=== PATIENT | female | born 1940 | race Caucasian/White ===

== ENCOUNTER 2022-07-26 08:55 | Outpatient (CLI) | payer MEDICARE, OTHER ==
[2022-07-26 11:59] LABS: BASOPHILS % (AUTO) 0.3 %; EOSINOPHILS # (AUTO) 0.2 10^3/uL (0.0-0.7); EOSINOPHILS % (AUTO) 2.6 %; HCT - HEMATOCRIT 46.3 % (37.0-47.0); LYMPHOCYTES # (AUTO) 2.9 10^3/uL (1.5-3.5); LYMPHOCYTES % (AUTO) 49.2 %; MEAN CORPUSCULAR HEMOGLOBIN 30.5 pg (27.0-31.0); MEAN CORPUSCULAR HGB CONC 32.4 g/dL (32.0-36.0); MEAN CORPUSCULAR VOLUME 94.1 fL (81.0-99.0); MEAN PLATELET VOLUME 10.7 fL (7.9-10.8); MONOCYTES # (AUTO) 0.4 10^3/uL (0.0-1.0); MONOCYTES % (AUTO) 7.5 %; NEUTROPHILS # (AUTO) 2.3 10^3/uL (1.5-6.6); NEUTROPHILS % (AUTO) 40.2 %; PLT - PLATELET COUNT 248 10^3/uL (130-450); RED BLOOD COUNT 4.92 10^6/uL (4.20-5.40); RED CELL DISTRIBUTION WIDTH 14.9 % (12.0-15.0); WHITE BLOOD COUNT 5.8 x10^3/uL (4.8-10.8)
[2022-07-26 12:18] LABS: ALBUMIN 3.9 g/dL (3.2-5.5); ALBUMIN/GLOBULIN RATIO 0.9 (1.0-2.2); ALKALINE PHOSPHATASE 59 IU/L (42-121); ALT ALANINE AMINOTRANSFERASE 18 IU/L (10-60); AST ASPARTATE AMINOTRANSFERASE 22 IU/L (10-42); BILIRUBIN,TOTAL 0.8 mg/dL (0.2-1.0); BUN - BLOOD UREA NITROGEN 18 mg/dL (6-20); CALCIUM 9.3 mg/dL (8.5-10.3); CARBON DIOXIDE - CO2 29 mmol/L (21-32); CHLORIDE 105 mmol/L (101-111); CHOL/HDL RATIO 4.4 (<4.4); CHOLESTEROL 257 mg/dL; CREATININE 0.9 mg/dL (0.4-1.0); GFR - MDRD 60 (>89); GLUCOSE 102 mg/dL (70-100); HDL CHOLESTEROL 58 mg/dL; LDL CHOLESTEROL,CALCULATED 178 mg/dL; LDL/HDL RATIO 3.1 (<4.4); POTASSIUM 3.9 mmol/L (3.5-5.0); SODIUM 140 mmol/L (135-145); TOTAL PROTEIN 8.4 g/dL (6.7-8.2); TRIGLYCERIDES 103 mg/dL; VLDL CHOLESTEROL 21 mg/dL
[2022-07-26 12:28] LABS: THYROID STIMULATING HORMONE 36.34 uIU/mL (0.34-5.60)
[2022-07-26 12:59] LABS: FREE T4 (FREE THYROXINE) 0.44 ng/dL (0.58-1.64)
== END 2022-07-26 08:56 | disposition home or self-care (01) ==
LOC: LAB.N 08:55
PROVIDERS: ATTEND Family Medicine
DX: E03.9 Hypothyroidism, unspecified (principal); G47.00 Insomnia, unspecified; R03.0 Elevated blood-pressure reading, without diagnosis of hypertension
CPT/HCPCS: 36415; 80053; 80061; 83721; 84439; 84443; 85025

== ENCOUNTER 2022-11-25 10:32 | Outpatient (CLI) | payer MEDICARE ==
[2022-11-25 13:37] LABS: THYROID STIMULATING HORMONE 48.57 uIU/mL (0.34-5.60)
== END 2022-11-25 10:33 | disposition home or self-care (01) ==
LOC: LAB.N 10:32
PROVIDERS: ATTEND Family Medicine
DX: E03.9 Hypothyroidism, unspecified (principal)
CPT/HCPCS: 36415; 80053; 80061; 83721; 84439; 84443; 84481; 85025

== ENCOUNTER 2022-12-05 08:37 | Outpatient (CLI) | payer MEDICARE ==
[2022-12-05 13:18] LABS: BILIRUBIN,URINE NEGATIVE (NEGATIVE); GLUCOSE, URINE (UA) NEGATIVE (NEGATIVE); KETONES,URINE (UA) NEGATIVE (NEGATIVE); LEUKOCYTE ESTERASE, URINE MODERATE (NEGATIVE); NITRITE,URINE NEGATIVE (NEGATIVE); OCCULT BLOOD,URINE TRACE-INTA (NEGATIVE); PH,URINE 7.5 PH (5.0-7.5); PROTEIN,URINE TRACE mg/dL (NEGATIVE); UROBILINOGEN,URINE 0.2 (NORMAL) E.U./dL (NORMAL)
[2022-12-05 13:21] LABS: CLARITY,URINE CLEAR (CLEAR)
[2022-12-05 13:30] LABS: RBC,URINE 0-5 /HPF (0-5); SQUAMOUS EPITHELIAL CELL,UR MOD Squamous (<= Few)
[2022-12-05 13:31] LABS: AMORPHOUS SEDIMENT,UR Moderate /LPF; BACTERIA,URINE Moderate /HPF (None Seen)
== END 2022-12-05 08:38 | disposition home or self-care (01) ==
LOC: LAB.N 08:37
PROVIDERS: ATTEND Family Medicine
DX: Z87.448 Personal history of other diseases of urinary system (principal)
CPT/HCPCS: 81001

== ENCOUNTER 2022-12-07 08:00 | Outpatient (CLI) | payer MEDICARE | END 2022-12-07 23:59 | disposition home or self-care (01) | LOC: LAB.WCP 08:00 | PROVIDERS: ATTEND Family Medicine | DX: N39.0 Urinary tract infection, site not specified (principal) | CPT/HCPCS: 87086 ==

== ENCOUNTER 2022-12-23 08:38 | Outpatient (CLI) | payer MEDICARE ==
[2022-12-23 12:34] LABS: THYROID STIMULATING HORMONE 46.05 uIU/mL (0.34-5.60)
== END 2022-12-23 08:39 | disposition home or self-care (01) ==
LOC: LAB.N 08:38
PROVIDERS: ATTEND Family Medicine
DX: E03.9 Hypothyroidism, unspecified (principal)
CPT/HCPCS: 36415; 84439; 84443; 84481

== ENCOUNTER 2023-04-24 09:52 | Outpatient (CLI) | payer MEDICARE ==
--- NOTE | 2023-04-24 22:13 | SLEEP CARE CONSULTATION ---
Information from patient questionnaire entered by Fadumo Canales. I have reviewed and concur with the information entered by Fadumo Canales. This document represents the service I personally performed and the decisions made by me, Shilo Acuña MD, [facility]. History of Present Illness Service Date and Time: 04/24/2023 0952 Reason for Visit: New patient Chief Complaint: reports: Insomnia, Other (USING O2 AT NIGHT FOR THE LAST THREE YRS) Date of Onset: 3-4YRS Usual bedtime: 830-9PM Time it takes to fall asleep: 15-30MINS Snores at night: No Observed to quit breathing while asleep: No Reasons for waking at night: reports: Bathroom Toss, Turn, or Twitch while sleeping: Yes Recalls having dreams: Yes (BUT NOT RECENTLY) Usually gets out of bed at: 830-9AM Feels refreshed in the morning: Yes Morning headache: No Sleepy or fatigued during the day: Yes Ever fallen asleep while driving: No Takes day naps: No Dreams during day naps: No Prior sleep studies: Yes Additional HPI information: I have the pleasure of seeing Ms. Doty today regarding the possibility of her having obstructive sleep apnea. As you know, she is an 82-year-old lady who complains of insomnia for 3 4 years. She had a sleep study in [place], [place] about 4 years ago and was told that her oxygen saturation was low at night. She has been using oxygen at night since. She states that she has dementia that is worsening. She blames it on not getting adequate deep sleep. She wakes up often during the night and has difficulty falling back asleep. Her son tells her that she spends too much time in bed. The patient tells me that she normally goes to bed around 8:30 - 9 pm, and it takes her approximately 15 - 30 minutes to fall asleep. She does not think she snores. She has never been observed to stop breathing in her sleep. However, she sleeps alone. In the morning she usually gets up out of the bed around 8:30 - 9 a.m. not feeling refreshed nor rested. She usually does not have a morning headache. During the day she does not feel sleepy and fatigued. Her score on [place] Sleepiness Scale is 4 out of 24. She never has fallen asleep while driving nor has had any accident due to sleepiness. She usually does not take naps during the day. - Parasomnia Symptoms Ever been unable to move upon waking from sleep: No Walks in sleep: No Talks in sleep: No Ever acted out dreams in sleep: No Ever felt weak in the knees when startled or emotional: No Bothered by creepy, crawly, restless sensations in legs: No Problems with memory or concentration: Yes Subjective Initial [place] Sleepiness Scale score: 4 (03/10/23) Past Medical History Past Medical History: reports: Arthritis, Hypothyroidism, Anxiety, GERD, Attention deficit, Other (DEMENTIA, O2 USAGE) Social History The patient's occupation is a RE. Patient is / and lives in [place]. Have you smoked in the past 12 months: No Cigarettes per day (20/pack): 10 Years of smokin Quit date: 1989 Smoking Pack Years: 2.0 Alcohol use: Yes Alcohol amount and frequency: 1 GLASS 1 X WEEK NOT IN PAST TWO YRS Caffeine use: Yes Caffeine amount and frequency: 1 CUPS COFFEE ONLY AT BREAKFAST Family History Family history of sleep disordered breathing: Yes Family Hx Sleep Apnea: Mother: Snoring, Father: Snoring Allergies and Home Medications Known drug allergies: Yes ( LISTED ) Drug allergies reviewed: Yes Home medication list reviewed: Yes Review of Systems Weight gain over past 5 years: 15 Cardiovascular: denies: high blood pressure, palpitations, chest pain, irregular heart rate or pulse, leg or foot swelling, have to sleep sitting up, other Respiratory: reports: sputum production Gastrointestinal: denies: heartburn, difficulty swallowing, nausea, vomitting, diarrhea, abdominal pain, other Urinary: reports: frequency Neurological: denies: headaches, seizure, head trauma, disorientation, speech dysfunction, gait or balance problems, fainting or unconsciousness, other Psychiatric: reports: Attention Deficit Hyperactivity, anxiety, other (DEMNTIA) Ear/Nose/Throat: reports: sinus problems, dry mouth/throat, tonsillectomy, wisdom teeth removed Endocrine: reports: thyroid disease, sluggishness Musculoskeletal: reports: neck pain Immunologic: denies: sneezing, rash, itching, allergies to food or environment, other Physical Exam Vital signs obtained and entered by: FADUMO Solis MA Blood Pressure: 146/86 (LEFT ARM) Cuff size: regular Heart Rate: 106 O2 Saturation: 95 Height: 5 ft 0.5 in Weight: 168 lb 12.8 oz Body Mass Index: 32.4 BMI Classification: Obese Neck circumference: 16.5 HEENT: No craniofacial malformation Nostrils: patent to airflow Turbinates: normal Septum: midline Mouth and throat: narrow oropharynx Soft palate: long Hard palate: normal Uvula: normal Uvula visualization: 50% Mallampati Class II Tongue: normal in size Tonsils: small Chin and jaw: normal size and position Neck: normal w/o lymphadenopathy or thyromegaly Heart: regular rate and rhythm Lungs: clear bilaterally Extremities: no edema or clubbing Neurologic: intact Impression and Plan IMPRESSION: 1. Nocturnal hypoxemia, based on her prior in-laboratory polysomnography, according to the patient. This will need to be reevaluated because she was at 6,000 ft elevation at the time and she is now at sea level. She also has gained weight which could make her have sleep-related breathing disorder. 2. Insomnia, psychophysiological and sleep state misperception. Cognitive behavior therapy (CBTi) was performed. First, I told her that her dementia is not due to lack of sleep in her case. The first sign of insufficient sleep is excessive daytime sleepiness which she does not have ([place] Sleepiness Scale score is of only 4). I then explained to her that by spending 12 hours in bed at night, she will always have to lie awake for 4 hours, assuming the normal sleep requirement of 8 hours a night. No sleep aid can help in this situation. Because of her dementia, there is most likely a component of sleep state misperception as well. Plan: 1. Schedule polysomnography and return in 1 to 2 weeks after the study to discuss results and initiate therapy if necessary. 2. Maintain a regular wake up time and spend no more than 8 hours in bed at night. Avoid naps. Counseling Topics: Weight control Follow up with Sleep Care in: 1-2 months Visit Type: In Office Time Spent with Patient (minutes): 15 Provider Statement: I spent 100% of the Face to Face Visit with the patient with greater than 50% spent counseling the patient and coordination of care.
[2023-04-24 22:16] VITALS: BP 146/86; O2SAT 95
== END 2023-04-24 09:53 | disposition home or self-care (01) ==
LOC: SC 09:52
PROVIDERS: ATTEND Internal Medicine Pulmonary Disease
DX: R09.02 Hypoxemia (principal); F51.04 Psychophysiologic insomnia; F03.90 Unspecified dementia, unspecified severity, without behavioral disturbance, psychotic disturbance, mood disturbance, and anxiety; E66.9 Obesity, unspecified; Z68.32 Body mass index [BMI] 32.0-32.9, adult; Z99.81 Dependence on supplemental oxygen
CPT/HCPCS: 99202; G0463; 99212

== ENCOUNTER 2023-05-02 08:43 | Outpatient (CLI) | payer MEDICARE ==
[2023-05-02 13:10] LABS: THYROID STIMULATING HORMONE 23.16 uIU/mL (0.34-5.60)
== END 2023-05-02 08:44 | disposition home or self-care (01) ==
LOC: LAB.N 08:43
PROVIDERS: ATTEND Internal Medicine Endocrinology, Diabetes & Metabolism
DX: E55.9 Vitamin D deficiency, unspecified (principal); E03.9 Hypothyroidism, unspecified
CPT/HCPCS: 36415; 82306; 84439; 84443; 84481

== ENCOUNTER 2023-05-03 20:46 | Outpatient (CLI) | payer MEDICARE | END 2023-05-03 20:47 | disposition home or self-care (01) | LOC: SC 20:46 | PROVIDERS: ATTEND Internal Medicine Pulmonary Disease | DX: G47.61 Periodic limb movement disorder (principal); R09.02 Hypoxemia | CPT/HCPCS: 95810 ==

== ENCOUNTER 2023-06-05 10:02 | Outpatient (CLI) | payer MEDICARE ==
--- NOTE | 2023-06-05 13:52 | SLEEP CARE CONSULTATION ---
Information from patient questionnaire entered by Fadumo Canales. I have reviewed and concur with the information entered by Fadumo Canales. This document represents the service I personally performed and the decisions made by me, Shilo Acuña MD, [facility]. History of Present Illness Service Date and Time: 06/05/2023 1002 Initial [place] Sleepiness Scale score: 4 (03/10/23) Current [place] Sleepiness Scale score: 3 (06/05/23) Additional HPI information: Ms. Lake returned for follow up of the sleep study she had on 05/03/23. The polysomnography showed that the patient had reduced sleep efficiency due to sleep onset insomnia and proj mgr awakening. The sleep architecture was relatively normal considering the first-night effect. Respiratory monitoring showed no significant sleep disordered breathing (AHI = 3.0) There was moderate hypoxia due low baseline oxygen saturation of 86% (aidee oxygen saturation of 79 %). The patient did not sleep supine during this study. Snore was light to loud in intensity. There was moderate periodic leg movement of sleep, not contributing to the sleep fragmentation. Cardiac rhythm was normal sinus rhythm without significant arrhythmia. No abnormal behavior (parasomnia) observed during the night. The patient was informed of these findings. I explained to her that her sleep study shows low oxygen saturation at night without significant sleep-disordered breathing. She is already using oxygen at home at 2 l/m that was started when she lived in [place]. She denies having restless leg syndrome. Sleep Study - Results Type of Sleep Study: Polysomnography (COMPLETED 05/03/23) Prior sleep studies: Yes Allergies and Home Medications Allergy and home medication list: Allergies trazodone Adverse Reaction (Verified 06/01/23 16:11) Review of Systems Review of systems same as previous: Yes (NO CHANGE) Physical Exam Vital signs obtained and entered by: FADUMO Solis MA Blood Pressure: 165/86 (LEFT ARM) Cuff size: regular Heart Rate: 90 O2 Saturation: 94 Height: 5 ft 0.5 in Weight: 169 lb 9.6 oz Body Mass Index: 32.5 BMI Classification: Obese Impression and Plan IMPRESSION: 1. Hypoxia, moderate. She reports having hypoxia on exertion as well. The etiology of her hypoxia has not been established. The patient only smoked cigarettes for 3 years while in college. I recommend she follow up with her primary care provider who may want to refer her to a pigment weigher. 2. Insomnia, due to excessive time spent in bed of about 12 hours a night. There is probably a component of sleep state misperception given her dementia. She was advised to not spend more than 8 hours in bed at night. If she wants to go to bed at 9 pm, then she must be out of bed no later than 5 am. PLAN: 1. Continue with home oxygen at night and on exertion 2. Follow up with her primary care provider for further evaluation of hypoxemia. 3. Maintain a regular wake up time and spend no more than 8 hours in bed at night. Avoid naps. 4. Return for a follow up on as needed basis. Follow up with Sleep Care in: as needed Follow up with: PCP Visit Type: In Office Time Spent with Patient (minutes): 15 Provider Statement: I spent 100% of the Face to Face Visit with the patient with greater than 50% spent counseling the patient and coordination of care.
[2023-06-05 13:55] VITALS: BP 165/86; O2SAT 94
== END 2023-06-05 10:03 | disposition home or self-care (01) ==
LOC: SC 10:02
PROVIDERS: ATTEND Internal Medicine Pulmonary Disease
DX: R09.02 Hypoxemia (principal); G47.00 Insomnia, unspecified
CPT/HCPCS: 99212; G0463

== ENCOUNTER 2023-08-08 08:58 | Outpatient (CLI) | payer MEDICARE ==
[2023-08-08 13:33] LABS: THYROID STIMULATING HORMONE 16.36 uIU/mL (0.34-5.60)
== END 2023-08-08 08:59 | disposition home or self-care (01) ==
LOC: LAB.N 08:58
PROVIDERS: ATTEND Internal Medicine Endocrinology, Diabetes & Metabolism
DX: E03.9 Hypothyroidism, unspecified (principal); E55.9 Vitamin D deficiency, unspecified
CPT/HCPCS: 36415; 82306; 84439; 84443; 84481

== ENCOUNTER 2023-12-06 13:57 | Outpatient (CLI) | payer MEDICARE | END 2023-12-06 13:58 | disposition home or self-care (01) | LOC: LAB.N 13:57 | PROVIDERS: ATTEND Internal Medicine Endocrinology, Diabetes & Metabolism | DX: Z53.9 Procedure and treatment not carried out, unspecified reason (principal) | CPT/HCPCS: 36415; 80053; 80061; 82306; 83721; 84443; 85025 ==

== ENCOUNTER 2023-12-07 11:44 | Outpatient (CLI) | payer MEDICARE ==
[2023-12-07 17:49] LABS: BASOPHILS % (AUTO) 0.5 %; EOSINOPHILS # (AUTO) 0.1 10^3/uL (0.0-0.7); EOSINOPHILS % (AUTO) 2.1 %; HCT - HEMATOCRIT 48.6 % (37.0-47.0); HGB - HEMOGLOBIN 14.9 g/dL (12.0-16.0); LYMPHOCYTES # (AUTO) 2.2 10^3/uL (1.5-3.5); LYMPHOCYTES % (AUTO) 38.3 %; MEAN CORPUSCULAR HEMOGLOBIN 28.5 pg (27.0-31.0); MEAN CORPUSCULAR HGB CONC 30.7 g/dL (32.0-36.0); MEAN CORPUSCULAR VOLUME 93.1 fL (81.0-99.0); MEAN PLATELET VOLUME 11.6 fL (7.9-10.8); MONOCYTES # (AUTO) 0.5 10^3/uL (0.0-1.0); MONOCYTES % (AUTO) 8.5 %; NEUTROPHILS # (AUTO) 2.9 10^3/uL (1.5-6.6); NEUTROPHILS % (AUTO) 50.4 %; PLT - PLATELET COUNT 251 10^3/uL (130-450); RED BLOOD COUNT 5.22 10^6/uL (4.20-5.40); RED CELL DISTRIBUTION WIDTH 15.1 % (12.0-15.0); WHITE BLOOD COUNT 5.7 x10^3/uL (4.8-10.8)
[2023-12-07 18:28] LABS: ALBUMIN 4.1 g/dL (3.2-5.5); ALKALINE PHOSPHATASE 59 IU/L (42-121); ALT ALANINE AMINOTRANSFERASE 12 IU/L (10-60); AST ASPARTATE AMINOTRANSFERASE 18 IU/L (10-42); BILIRUBIN,TOTAL 0.4 mg/dL (0.2-1.0); BUN - BLOOD UREA NITROGEN 14 mg/dL (6-20); CARBON DIOXIDE - CO2 30 mmol/L (21-32); CHLORIDE 104 mmol/L (101-111); CHOL/HDL RATIO 4.4 (<4.4); CHOLESTEROL 203 mg/dL; CREATININE 0.9 mg/dL (0.6-1.3); GFR - MDRD 60 (>89); GLUCOSE 132 mg/dL (74-104); HDL CHOLESTEROL 46 mg/dL; LDL CHOLESTEROL,CALCULATED 122 mg/dL; LDL/HDL RATIO 2.7 (<4.4); POTASSIUM 4.1 mmol/L (3.5-4.5); SODIUM 140 mmol/L (135-145); TOTAL PROTEIN 8.3 g/dL (6.4-8.9); TRIGLYCERIDES 174 mg/dL; VLDL CHOLESTEROL 35 mg/dL
[2023-12-07 18:40] LABS: THYROID STIMULATING HORMONE 5.25 uIU/mL (0.34-5.60)
== END 2023-12-07 11:45 | disposition home or self-care (01) ==
LOC: LAB.N 11:44
PROVIDERS: ATTEND Internal Medicine Endocrinology, Diabetes & Metabolism
DX: K21.9 Gastro-esophageal reflux disease without esophagitis (principal); E03.9 Hypothyroidism, unspecified; G47.34 Idiopathic sleep related nonobstructive alveolar hypoventilation; F90.9 Attention-deficit hyperactivity disorder, unspecified type; R06.89 Other abnormalities of breathing; G47.00 Insomnia, unspecified; F32.A Depression, unspecified
CPT/HCPCS: 36415; 80053; 80061; 83721; 84439; 84443; 84481; 85025